=== PATIENT | male | born 1955 | race Caucasian/White ===

== ENCOUNTER 2018-09-15 14:24 | Emergency (ER) | payer SELFPAY ==
--- NOTE | 2018-09-15 15:46 | EDPHY ---
H & P Time Seen by Provider: 09/15/18 15:10 HPI/ROS: CHIEF COMPLAINT: Left shoulder pain History by patient HISTORY OF PRESENT ILLNESS: 63-year-old man presents complaining of acute onset left shoulder pain 4 days ago when he was helping somebody move and lifting boxes and he felt a sudden sharp pain in his shoulder. He subsequently had intermittent pain there especially when he moves it a certain way. He has a history of rotator cuff tear that was surgically repaired on the right several years ago and this feels similar. He denies other pain or injury. He has not really been taking anything for the pain. He recently moved here and has no primary care physician. REVIEW OF SYSTEMS: As in HPI, and all other systems reviewed and are negative Smoking Status: Current every day smoker Physical Exam: General Appearance: Alert and no distress. Head: Normocephalic, atraumatic Eyes: Pupils equal and round no injection. Extraocular movements are intact. Musculoskeletal: Neck is supple and nontender. Extremities: Positive palpable deformity and distal end of clavicle without tenderness, no AC joint tenderness, positive mild posterior shoulder anterior shoulder tenderness, positive mild biceps tendon tenderness. Full range of motion of left shoulder with some pain. Patient is able to abduct with internal rotation against resistance. Radial pulses 2+ and equal to the left. Radial, median and ulnar nerves are intact motor and sensory. Skin: No rashes or lesions except as described above. Constitutional: Initial Vital Signs Temperature (C) 37.1 C 09/15/18 14:30 Heart Rate 90 09/15/18 14:30 Respiratory Rate 16 09/15/18 14:30 Blood Pressure 126/86 H 09/15/18 14:30 O2 Sat (%) 94 09/15/18 14:30 O2 Delivery Mode Room Air Allergies/Adverse Reactions: ibuprofen Allergy (Verified 09/15/18 14:31) pt reports vomiting ketorolac [From Toradol] Allergy (Verified 09/15/18 14:31) pt reports vomiting tramadol Allergy (Verified 09/15/18 14:31) pt reports numb tongue and throat Home Medications: Medication Instructions Recorded Lidocaine [Lidoderm] 1 each TP DAILY PRN #30 adh..patch 09/15/18 Meloxicam 7.5 mg PO DAILY #10 tablet 09/15/18 MDM/Departure - [facility] Imaging Results: Imaging Impressions Shoulder X-Ray 09/15/18 14:34 Impression: 1. Suspect old injury of the distal left clavicle. 2. Mild AC joint subluxation, suggestive of an age-indeterminate type II sprain injury. 3. Mild degenerative osteoarthrosis, with some secondary features suggesting some impingement anatomy. Imaging: I viewed and interpreted images myself ED Course/Re-evaluation: 63-year-old man presents with left shoulder pain with exam and history consistent with rotator cuff injury, but there is no clinical evidence of full tear. X-ray shows no evidence of acute fracture. Patient states he has a prior distal clavicle injury many years ago. Patient is given meloxicam as he cannot tolerate other NSAIDs because they make him vomit as well as topical lidocaine for pain. He is referred for primary care for follow-up. - Depart Disposition: Home, Routine, Self-Care Clinical Impression: Rotator cuff (capsule) sprain Qualifiers: Encounter type: initial encounter Laterality: left Qualified Code(s): S43.422A - Sprain of left rotator cuff capsule, initial encounter Condition: Good Instructions: Rotator Cuff Injury (ED) Additional Instructions: You were seen by Dr. Mayda Saldana today. You may take meloxicam once daily for pain. You may use lidocaine patches in the painful areas for pain relief. Please establish primary care. Call Sakina Sutherland to get an appointment you may need to get some physical therapy if this does not improve over the next 2 weeks. Return for any worsening or new concerns. Prescriptions: Lidocaine [Lidoderm] 1 each TP DAILY PRN #30 adh..patch PRN Reason: pain Meloxicam 7.5 mg PO DAILY #10 tablet Referrals: NONE *PRIMARY CARE P,. [Primary Care Provider] - As per Instructions
[2018-09-15 15:52] VITALS: BP 125/60
== END 2018-09-15 15:50 | disposition home or self-care (01) ==
LOC: CED 14:24
DX: S43.422A Sprain of left rotator cuff capsule, initial encounter (principal); X50.0XXA Overexertion from strenuous movement or load, initial encounter; F17.200 Nicotine dependence, unspecified, uncomplicated
CPT/HCPCS: 73030-PO